=== PATIENT | female | born 1960 | race Caucasian/White ===

== ENCOUNTER 2017-11-13 19:47 | Emergency (ER) | payer MEDICARE, MEDICAID ==
[~2017-11-13] VITALS: Ht 157.5 cm; Wt 107.0 kg
[~2017-11-13 19:47] MED LIST: ASPI-1265 PO; DIAZ5TAB PO; ENAL20TA75 PO; GLYB-97 PO; HYDR-3965 PO; LEVO125T69 PO; METF500T PO; NITR100C6 PO
[2017-11-13] MEDS ORDERED: proCHLORperazine 10 MG/2 ml inj IM ONE (20:55)
[2017-11-13] MEDS ORDERED: diphenhydrAMINE 50 mg/ml inj IM ONE (20:55)
[2017-11-13] MEDS ORDERED: ketorolac trometh inj. 60 MG/2 ML VIAL IM ONE (20:55)
[2017-11-13 21:29] VITALS: BP 166/62
== END 2017-11-13 21:29 | disposition home or self-care (01) ==
LOC: ER 19:48
DX: G43.009 Migraine without aura, not intractable, without status migrainosus (principal); E03.9 Hypothyroidism, unspecified; I10 Essential (primary) hypertension; E11.9 Type 2 diabetes mellitus without complications; Z56.0 Unemployment, unspecified; Z79.82 Long term (current) use of aspirin
CPT/HCPCS: 96372; 99284; J0780; J1200; J1885

== ENCOUNTER 2019-08-25 18:19 | Emergency (ER) | payer MEDICARE, MEDICAID ==
[~2019-08-25] VITALS: Ht 157.5 cm; Wt 104.7 kg
[2019-08-25 18:25] VITALS: BP 178/70
[2019-08-25] MEDS ORDERED: ALBU8HFA PO (19:56)
[2019-08-25] MEDS ORDERED: AZIT250T83 PO (19:56)
== END 2019-08-25 20:08 | disposition home or self-care (01) ==
LOC: ER 18:19
DX: J20.9 Acute bronchitis, unspecified (principal); G43.909 Migraine, unspecified, not intractable, without status migrainosus; I10 Essential (primary) hypertension; E11.9 Type 2 diabetes mellitus without complications; E03.9 Hypothyroidism, unspecified; Z90.49 Acquired absence of other specified parts of digestive tract; Z90.710 Acquired absence of both cervix and uterus; Z56.0 Unemployment, unspecified; Z79.82 Long term (current) use of aspirin; Z79.899 Other long term (current) drug therapy
CPT/HCPCS: 99283

== ENCOUNTER → 2021-06-11 | Emergency (ER) | payer OTHER, MEDICAID ==
[~2021-06-11] VITALS: Ht 157.5 cm; Wt 104.1 kg
[2021-06-11 14:34] VITALS: BP 131/56
[2021-06-11 15:10] LABS: CLARITY,URINE CLEAR (Clear); COLOR,URINE YELLOW (Yellow); GLUCOSE, URINE NEGATIVE (Neg); KETONES,URINE NEGATIVE (Neg); LEUKOCYTE ESTERASE ,URINE NEGATIVE (Neg); NITRITES, URINE NEGATIVE (Neg); OCCULT BLOOD,URINE NEGATIVE (Neg); PH,URINE 5.5 (4.8-8.0); PROTEIN,URINE NEGATIVE (Neg); UROBILINOGEN,URINE 0.2 E.U/dL (0.2-1.0)
[2021-06-11 15:15] LABS: UA COLLECTION TYPE CLN CATCH MIDSTREAM
[2021-06-11 15:55] LABS: BASOPHILS % (AUTO) 0.7 % (0-1); EOSINOPHILS # (AUTO) 0.2 X10'3 (0-0.9); EOSINOPHILS % (AUTO) 2.7 % (0-6); HEMATOCRIT 37.5 % (35.0-45.0); HEMOGLOBIN 12.6 g/dl (12.0-16.0); LYMPHOCYTES # (AUTO) 0.9 X10'3 (1.1-4.8); LYMPHOCYTES % (AUTO) 16.2 % (21-51); MEAN CORPUSCULAR HEMOGLOBIN 29.6 PG (27.0-31.0); MEAN CORPUSCULAR HGB CONC 33.7 g/dL (33.0-36.5); MONOCYTES # (AUTO) 0.4 X10'3 (0-0.9); MONOCYTES % (AUTO) 7.2 % (2-12); NEUTROPHILS # (AUTO) 4.3 X10'3 (1.8-7.7); NEUTROPHILS % (AUTO) 73.2 % (42-75); PLATELET COUNT 328 X10'3 (140-440); RED BLOOD COUNT 4.26 X10'6 (4.20-5.60); RED CELL DISTRIBUTION WIDTH 13.7 % (11.5-14.5); WHITE BLOOD COUNT 5.8 X10'3 (4.5-11.0)
[2021-06-11 16:18] LABS: ALANINE AMINOTRANSFERASE 28 U/L (12-78); ALBUMIN 3.8 G/DL (3.4-5.0); ALBUMIN/GLOBULIN RATIO 1.1 (1.1-1.5); ALKALINE PHOSPHATASE 74 IU/L (46-116); ANION GAP 6 (8-16); ASPARTATE AMINO TRANSFERASE 19 U/L (10-37); BILIRUBIN,TOTAL 0.4 MG/DL (0.1-1.0); BLOOD UREA NITROGEN 14 MG/DL (7-18); BUN/CREATININE RATIO 14.1 (6.6-38.0); CALCIUM 8.5 MG/DL (8.5-10.1); CHLORIDE 102 MMOL/L (99-107); CREATININE 0.99 MG/DL (0.40-0.90); GLUCOSE 109 MG/DL (70-104); POTASSIUM 4.1 MMOL/L (3.5-5.1); SODIUM 138 MMOL/L (135-145); TOTAL CARBON DIOXIDE 29.8 MMOL/L (24-32); TOTAL PROTEIN 7.4 G/DL (6.4-8.2); eGFR 57 ML/MIN
== END | disposition left against medical advice (07) ==
LOC: ER 13:13
DX: N23 Unspecified renal colic (principal); Z53.21 Procedure and treatment not carried out due to patient leaving prior to being seen by health care provider
CPT/HCPCS: 36415; 80053; 81003; 85025

== ENCOUNTER 2025-06-30 13:42 | Emergency (ER) | payer MEDICARE, MEDICAID ==
[~2025-06-30] VITALS: Ht 154.9 cm; Wt 93.6 kg
[~2025-06-30 13:42] MED LIST changes: +CHOL500044 PO; -DIAZ5TAB PO; +FOLI1TAB27 PO; -HYDR-3965 PO; +LACT1CAP26 PO; +LANTUS SUBCUT; -NITR100C6 PO; +ROSU40TA PO
--- NOTE | 2025-06-30 14:26 | RADIOLOGY REPORT ---
EXAM: DI SHOULDER, COMPLETE (MIN 2 VWS) INDICATION: Shoulder Pain TECHNIQUE: 3 views of the right shoulder COMPARISON: None FINDINGS/IMPRESSION: No radiographic evidence of an acute osseous abnormality. There is no acute fracture, osseous malalignment, or aggressive focal osseous lesion.
[2025-06-30] MEDS: ketorolac trometh 15mg/ml vial 15 MG/ML ML IM ONE (16:27)
--- NOTE | 2025-06-30 16:27 | Physician Documentation ---
History of Present Illness ~ Chief Complaint: Arm Pain Stated Complaint: RIGHT ARM PAIN Time Seen by MD: 15:32 Primary Medical Doctor: Dr Elly SR This is a 65-year-old female that presented to the emergency department for right shoulder pain x2 weeks. Patient denies any traumatic injury and reports that the pain feels dull of radiates down her arm to her wrist. Denies any head neck back or chest pain at this time. Patient reports that she has taken ibuprofen with some relief. Tetanus within 5 years: Yes Medication Reconciliation Allergies: Coded Allergies: No Known Allergies (Unverified , 06/30/25) Scheduled Aspirin (Aspirin), 81 MG PO DAILY, (Reported) Cholecalciferol (Vitamin D3) (Vitamin D3), 1 TAB PO DAILY, (Reported) Enalapril Maleate* (Vasotec*), 20 MG PO DAILY, (Reported) Folic Acid* (Folic Acid*), 1 TAB PO DAILY, (Reported) Glyburide* (Glyburide*), 5 MG PO BIDAC, (Reported) Insulin Glargine,Hum.rec.anlog* (Lantus*), 20 UNITS SUBCUT HS Lactobacillus Rhamnosus (Culturelle), 1 CAP PO BID Levothyroxine Sodium* (Levoxyl*), 125 MCG PO DAILY, (Reported) Metformin Hcl* (Glucophage*), 500 MG PO BID, (Reported) Rosuvastatin Calcium* (Crestor*), 1 TAB PO DAILY Past Medical History Past Medical History: Migraine, Hypertension, Bowel Obstruction, Hernia, Diabetes, Hypothyroidism Past Surgical History: cholecystectomy, colectomy, hysterectomy, tonsillectomy, other Patient History: Cardiac pacemaker MOTHER FH: Alzheimers disease FATHER FH: cancer GRANDFATHER OR GRANDMOTHER FHx: diabetes mellitus FATHER Alcohol Use: None Drug Use: none Lives with: Mother Lives In: Home Occupation: unemployed Review of Systems ROS As stated above in the HPI, otherwise all systems are reviewed and negative. Physical Exam Vital Signs: Temperature: 98.1, Source: Oral, Heart Rate: 82, Respiratory Rate: 16, BP: 158/54, Pulse Oximetry: 98, Weight: 93.600 Oxygen Flow Rate: 0 Physical Exam VITALS: Reviewed and as above. GENERAL: Alert, no apparent distress. HEENT: Normocephalic, atraumatic, PERRL, EOMI, dry mucosa, no erythema RESPIRATORY: Lungs clear, normal breath sounds, no respiratory distress. CHEST: No accessory muscle use, no retractions CV: Regular rate, rhythm, no edema, no murmur, No: JVD GI: Soft, non-tender, bowels sounds present, no rebound, guarding, or rigidity BACK: No CVA tenderness, or swelling MUSCULOSKELETAL No deformities, no edema, pain with range of motion to the right upper extremity, no decreased strength or sensation. SKIN: Warm and dry, no rash NEURO: Oriented x4, No motor or sensory deficit PSYCH: Normal mood and affect, no agitation Progress Results/Orders Results/Orders Completed Orders - DIONICIO RNAGEL SENIOR ENVIRONMENTAL TECHNICIAN Ketorolac Trometh 15mg/Ml Vial (Toradol (06/30/25 16:10) Methylprednisolone Sod Succ (Solumedrol (06/30/25 16:10) Methylprednisolone Sod Succ (Solumedrol (06/30/25 16:15) Vital Signs 06/30/25 13:48 Temp 98.1 Pulse 82 Resp 16 B/P (MAP) 158/54 Pulse Ox 98 O2 Flow Rate 0 Medical Decision Making Findings Patient presents with shoulder pain x2 weeks. Given history, exam and workup patient likely has arthritis. I have low suspicion for fracture, dislocation, significant ligamentous injury, septic arthritis, gout flare, new autoimmune arthropathy, or gonococcal arthropathy. Patient has been provided with Toradol and a steroid injection today as a diagnostic/therapeutic intervention. He will follow up with her primary care provider for any additional imaging is needed. Patient return to the emergency depart with any worsening her current symptoms or any additional concerning symptoms that we discussed here today i.e. increased pain redness swelling warmth fevers or any other concerning symptoms. General Diff Dx:Considerations: Include: Abrasion, Contusion, Fracture, Hematoma, Laceration, Malunion, Neurovascular injury, Open fracture, Sprain, Ulcer, Other Shoulder Diff Dx:Consideration: Include: AC separation, Adhesive capsulitis, Arthritis, Bicipital tendonitis, Calcific tendonitis, Cervical disc disease, Contusion, Dislocation, Fracture-humerus, Fracture-scapula, Fracture-clavicle, GB disease, Hematoma, Impingement syndrome, Myocardial infarction, Neurovascular injury, Open fracture-humerus, Open fracture-scapula, Open fracture-clavicle, Rotator cuff injury, SC dislocatoin, Sprain, Subacromial bursitis, Other Departure Disposition: HOME / SELF CARE / HOMELESS Impression: Primary Impression: Shoulder pain Additional Impressions: Nerve pain Arthritis, shoulder region Condition: Stable Discharge Instructions: Arthritis, [id number] Additional Instructions: Patient presents with shoulder pain x2 weeks. Given history, exam and workup patient likely has arthritis. I have low suspicion for fracture, dislocation, significant ligamentous injury, septic arthritis, gout flare, new autoimmune arthropathy, or gonococcal arthropathy. Patient has been provided with Toradol and a steroid injection today as a diagnostic/therapeutic intervention. He will follow up with her primary care provider for any additional imaging is needed. Patient return to the emergency depart with any worsening her current symptoms or any additional concerning symptoms that we discussed here today i.e. increased pain redness swelling warmth fevers or any other concerning symptoms. Tylenol or ibuprofen as needed for discomfort. Referrals: NO PRIMARY CARE PROVIDER (PCP) Education Educated: Patient Educated regarding: diagnosis, treatment, need for follow up Signature Scribe Signature: A Attestation: Scribed for Dionicio Rangel by PHILL Calvo . 06/30/25 16:28 DIONICIO RANGEL Jun 30, 2025 16:27
[2025-06-30 16:52] VITALS: BP 134/85; PULSE 70; RESP 16; TEMP 98.1; O2SAT 98
== END 2025-06-30 16:57 | disposition home or self-care (01) ==
LOC: ER 13:43
DX: M19.011 Primary osteoarthritis, right shoulder (principal); M79.2 Neuralgia and neuritis, unspecified; E03.9 Hypothyroidism, unspecified; E11.9 Type 2 diabetes mellitus without complications; I10 Essential (primary) hypertension; Z90.49 Acquired absence of other specified parts of digestive tract; Z90.710 Acquired absence of both cervix and uterus; Z95.0 Presence of cardiac pacemaker; Z79.82 Long term (current) use of aspirin
CPT/HCPCS: 73030; 96372; 99284; J1885; J2919